=== PATIENT | male | born 1970 | race Caucasian/White ===

== ENCOUNTER 2017-10-26 11:36 | Emergency (ER) | payer SELFPAY ==
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
[2017-10-26 11:45] VITALS: BP 137/114
== END 2017-10-26 13:16 | disposition home or self-care (01) ==
LOC: JD.ED 11:36
DX: F41.9 Anxiety disorder, unspecified (principal); Z79.899 Other long term (current) drug therapy
CPT/HCPCS: 99283; 99284

== ENCOUNTER 2018-07-27 22:43 | Emergency (ER) | payer BC ==
[2018-07-27 22:54] VITALS: BP 157/99
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
== END 2018-07-28 00:30 ==
LOC: JD.ED 22:43
DX: S00.81XA Abrasion of other part of head, initial encounter (principal); M54.6 Pain in thoracic spine; V28.4XXA Motorcycle driver injured in noncollision transport accident in traffic accident, initial encounter; Z53.21 Procedure and treatment not carried out due to patient leaving prior to being seen by health care provider
CPT/HCPCS: 99282; 99283